=== PATIENT | male | born 1995 | race African-American/Black ===

== ENCOUNTER 2016-07-27 18:48 | Emergency (ER) | payer SELFPAY ==
[~2016-07-27] VITALS: Ht 175.3 cm; Wt 86.2 kg
[2016-07-27] MEDS ORDERED: ALLE24TA8 PO (20:23)
[2016-07-27] MEDS ORDERED: NAPHSOL OD (20:23)
[2016-07-27 20:32] VITALS: BP 114/72
== END 2016-07-27 20:39 | disposition home or self-care (01) ==
LOC: M ED 19:56
DX: H10.13 Acute atopic conjunctivitis, bilateral (principal)

== ENCOUNTER 2016-08-12 08:46 | Emergency (ER) | payer SELFPAY ==
[~2016-08-12] VITALS: Ht 175.3 cm; Wt 91.4 kg
[~2016-08-12 08:46] MED LIST: ALLE24TA8 PO; NAPHSOL OD
[2016-08-12] MEDS ORDERED: FLON1SPR (10:13)
[2016-08-12] MEDS ORDERED: NAPHCON-A OPHTH SOLN 15 ML OD PRN (10:15)
[2016-08-12] MEDS ORDERED: NAPHSOL OD (10:15)
[2016-08-12] MEDS ORDERED: CETIRIZINE (ZyrTEC) 10 MG TAB PO ONE (10:15)
[2016-08-12] MEDS ORDERED: ZYRT10TA2 PO (10:15)
[2016-08-12 10:26] VITALS: BP 126/69
== END 2016-08-12 10:59 | disposition home or self-care (01) ==
LOC: M ED 09:07
DX: H10.45 Other chronic allergic conjunctivitis (principal)

== ENCOUNTER → 2016-11-10 | Outpatient (REF) ==
[~2016-11-10] MED LIST changes: +CLOTR1CR TOP; +FLON1SPR; +ZYRT10TA2 PO
== END ==
LOC: M LAB 09:10
PROVIDERS: ATTEND Nurse Practitioner Adult Health
DX: Z02.1 Encounter for pre-employment examination (principal)

== ENCOUNTER 2016-12-21 15:37 | Emergency (ER) | payer SELFPAY ==
[~2016-12-21] VITALS: Ht 175.3 cm; Wt 87.3 kg
[~2016-12-21 15:37] MED LIST changes: -CLOTR1CR TOP
[2016-12-21] MEDS ORDERED: CLOTR1CR TOP (16:32)
[2016-12-21 17:50] VITALS: BP 114/84
== END 2016-12-21 17:56 | disposition home or self-care (01) ==
LOC: M ED 15:37
DX: B36.0 Pityriasis versicolor (principal)

== ENCOUNTER 2017-06-09 09:31 | Emergency (ER) | payer SELFPAY, MEDICAID | END 2017-06-09 10:20 | disposition home or self-care (01) | LOC: M ED 09:31 | DX: R03.0 Elevated blood-pressure reading, without diagnosis of hypertension (principal); M54.2 Cervicalgia; M54.6 Pain in thoracic spine | CPT/HCPCS: 99282 ==

== ENCOUNTER 2018-06-12 00:35 | Emergency (ER) | payer OTHER ==
[~2018-06-12] VITALS: Ht 175.3 cm; Wt 86.0 kg
[~2018-06-12 00:35] MED LIST changes: +ALLE24TA7 PO; -ALLE24TA8 PO; +CLOT1CRE27 TOP; +CYCL10TA PO; +IBUP80TA PO; +ZYRT10CA5 PO; -ZYRT10TA2 PO
[2018-06-12] MEDS ORDERED: KETO10TAB PO (01:44)
[2018-06-12] MEDS ORDERED: CYCL10TA PO (01:44)
[2018-06-12] MEDS ORDERED: CYCLOBENZAPRINE 10 MG TAB PO ONE (01:45)
[2018-06-12] MEDS ORDERED: KETOROLAC TROMETHAMINE 10 MG TAB PO ONE (01:45)
[2018-06-12 02:04] VITALS: BP 136/70
== END 2018-06-12 02:00 | disposition home or self-care (01) ==
LOC: M ED 00:35
DX: S39.012A Strain of muscle, fascia and tendon of lower back, initial encounter (principal); X50.9XXA Other and unspecified overexertion or strenuous movements or postures, initial encounter; Y92.89 Other specified places as the place of occurrence of the external cause; Y93.67 Activity, basketball

== ENCOUNTER 2018-09-19 09:40 | Emergency (ER) | payer OTHER ==
[~2018-09-19] VITALS: Ht 175.3 cm; Wt 86.7 kg
[~2018-09-19 09:40] MED LIST changes: +KETO10TAB PO
[2018-09-19] MEDS ORDERED: CYCLOBENZAPRINE 10 MG TAB PO ONE (10:45)
[2018-09-19] MEDS ORDERED: IBUPROFEN 800 MG TAB PO ONE (10:45)
--- NOTE | 2018-09-19 11:22 | REP ---
LUMBOSACRAL SPINE: Five of the lumbosacral spine performed. There is no compression fracture or malalignment. There is normal lordosis. Disc spaces are well preserved. The posterior elements are intact. There is no change since the prior study of 01/06/2016. IMPRESSION: Negative lumbosacral spine series. Electronically Signed by Link Corbett MD 09/20/2018 01:01 P
[2018-09-19] MEDS ORDERED: CYCL5TAB PO (11:50)
[2018-09-19 12:09] VITALS: BP 115/67
== END 2018-09-19 12:10 | disposition home or self-care (01) ==
LOC: M ED 09:40
DX: S39.012A Strain of muscle, fascia and tendon of lower back, initial encounter (principal); X50.0XXA Overexertion from strenuous movement or load, initial encounter; Y92.89 Other specified places as the place of occurrence of the external cause; Y93.9 Activity, unspecified; Y99.0 Civilian activity done for income or pay; G89.29 Other chronic pain; M54.9 Dorsalgia, unspecified

== ENCOUNTER → 2019-09-26 | Outpatient (REF) | payer OTHER ==
[~2019-09-26] MED LIST changes: +CYCL-707 PO; -CYCL10TA PO; +CYCL5TAB PO; +PRED10TA2 PO; +ROBA750T4 PO
== END ==
LOC: M LAB REF 11:53
PROVIDERS: ATTEND Physician Assistant Medical
DX: Z03.818 Encounter for observation for suspected exposure to other biological agents ruled out (principal); Z11.59 Encounter for screening for other viral diseases

== ENCOUNTER 2019-11-02 20:29 | Emergency (ER) | payer OTHER ==
[~2019-11-02] VITALS: Ht 175.3 cm; Wt 82.8 kg
[~2019-11-02 20:29] MED LIST changes: -PRED10TA2 PO; -ROBA750T4 PO
[2019-11-02] MEDS ORDERED: diazePAM 10MG/2ML SYRINGE (J3360 PER 5MG) IM ONE (21:45)
[2019-11-02] MEDS ORDERED: KETOROLAC 60MG 2ML VIAL IM ONE (21:45)
--- NOTE | 2019-11-02 22:12 | REPVR ---
PROCEDURE INFORMATION: Exam: CT Cervical Spine Without Contrast Exam date and time: 11/02/2019 9:52 PM Age: 24 years old Clinical indication: Pain; Other: Vert. Point tenderness; Additional info: Vert. Point tenderness; Post jumping TECHNIQUE: Imaging protocol: Computed tomography images of the cervical spine without contrast. Axial, coronal and sagittal reformatted images were created and reviewed. Radiation optimization: All CT scans at this facility use at least one of these dose optimization techniques: automated exposure control; mA and/or kV adjustment per patient size (includes targeted exams where dose is matched to clinical indication); or iterative reconstruction. COMPARISON: No relevant prior studies available. FINDINGS: Vertebrae: Straightening of the normal cervical lordosis. Alignment anatomic. Dextroscoliosis. No CT evidence of acute fracture, dislocation or subluxation. Vertebral body heights maintained. Discs/Spinal canal/Neural foramina: Intervertebral disc spaces preserved. No significant spinal canal or neural foraminal stenosis. Soft tissues: Grossly unremarkable. Lungs: Grossly unremarkable. IMPRESSION: 1. No CT evidence of acute cervical spine traumatic injury. 2. Additional findings, as above. Electronically signed by: Jovani Thayer On 11/02/2019 22:13:20 PM
[2019-11-02] MEDS ORDERED: ROBA750T4 PO (22:43)
[2019-11-02] MEDS ORDERED: PRED10TA2 PO (22:44)
[2019-11-02 23:05] VITALS: BP 114/78
== END 2019-11-02 23:00 | disposition home or self-care (01) ==
LOC: M ED 20:29
DX: S13.4XXA Sprain of ligaments of cervical spine, initial encounter (principal); X58.XXXA Exposure to other specified factors, initial encounter; Y92.89 Other specified places as the place of occurrence of the external cause
CPT/HCPCS: 72125; 96372; 99283; J1885; J3360

== ENCOUNTER 2020-02-27 07:52 | Emergency (ER) | payer OTHER ==
[~2020-02-27] VITALS: Ht 175.3 cm; Wt 85.7 kg
[~2020-02-27 07:52] MED LIST changes: +PRED10TA2 PO; +ROBA750T4 PO
[2020-02-27] MEDS ORDERED: AZITHROMYCIN 250MG TABLET PO ONE (08:30)
[2020-02-27] MEDS ORDERED: cefTRIAXone SOD 250MG VIAL (J0696 PER 250MG) IM ONE (08:30)
[2020-02-27] MEDS ORDERED: LIDOCAINE 1% SDV 5ML VIAL DILUENT ONE (08:30)
[2020-02-27 09:36] VITALS: BP 130/73
[2020-02-27 11:09] LABS: CHLAMYDIA DNA AMPLIFICATION NEGATIVE (NEGATIVE); GC DNA AMPLIFICATION POSITIVE (NEGATIVE)
== END 2020-02-27 09:38 | disposition home or self-care (01) ==
LOC: M ED 07:52
DX: R30.0 Dysuria (principal); N50.9 Disorder of male genital organs, unspecified; Z20.2 Contact with and (suspected) exposure to infections with a predominantly sexual mode of transmission
CPT/HCPCS: 81001; 87086; 87661; 96372; 99283; J0696

== ENCOUNTER 2020-05-01 20:36 | Emergency (ER) | payer OTHER ==
[~2020-05-01] VITALS: Ht 175.3 cm; Wt 84.7 kg
--- OUTSIDE RECORDS SUMMARY | 2020-05-01 20:49 | CCD ---
Author Author [facility] Address Unknown Phone Unavailable Care Team Providers Care Rn Utilization Management Um Name Role Phone WILFREDO RITTER Unavailable Unavailable OCTAVIO GALEANA MD Unavailable Unavailable OCTAVIO GALEANA MD Unavailable Unavailable OCTAVIO GALEANA MD Unavailable Unavailable OCTAVIO GALEANA MD Unavailable Unavailable OCTAVIO GALEANA MD Unavailable Unavailable Mariela Curry RESOURCE DEVELOPMENT MANAGER Unavailable Unavailable Destiny Curry Unavailable Unavailable Patricio, A Mariela RESOURCE DEVELOPMENT MANAGER Unavailable Unavailable Patricio, A Mariela RESOURCE DEVELOPMENT MANAGER Unavailable Unavailable Patricio, A Mariela RESOURCE DEVELOPMENT MANAGER Unavailable Unavailable Patricio, A Mariela RESOURCE DEVELOPMENT MANAGER Unavailable Unavailable Patricio, A Mariela RESOURCE DEVELOPMENT MANAGER Unavailable Unavailable Patricio, A Mariela RESOURCE DEVELOPMENT MANAGER Unavailable Unavailable Patricio, A Mariela RESOURCE DEVELOPMENT MANAGER Unavailable Unavailable Patricio, A Mariela RESOURCE DEVELOPMENT MANAGER Unavailable Unavailable Patricio, A Mariela RESOURCE DEVELOPMENT MANAGER Unavailable Unavailable Patricio, A Mariela RESOURCE DEVELOPMENT MANAGER Unavailable Unavailable Patricio, A Mariela RESOURCE DEVELOPMENT MANAGER Unavailable Unavailable Patricio, A Mariela RESOURCE DEVELOPMENT MANAGER Unavailable Unavailable Patricio, A Mariela RESOURCE DEVELOPMENT MANAGER Unavailable Unavailable Patricio, A Mariela RESOURCE DEVELOPMENT MANAGER Unavailable Unavailable Patricio, A Mariela RESOURCE DEVELOPMENT MANAGER Unavailable Unavailable Patricio, A Mariela RESOURCE DEVELOPMENT MANAGER Unavailable Unavailable Patricio, A Mariela RESOURCE DEVELOPMENT MANAGER Unavailable Unavailable Patricio, A Mariela RESOURCE DEVELOPMENT MANAGER Unavailable Unavailable Patricio, A Mariela RESOURCE DEVELOPMENT MANAGER Unavailable Unavailable Patricio, A Mariela RESOURCE DEVELOPMENT MANAGER Unavailable Unavailable Patricio, A Mariela RESOURCE DEVELOPMENT MANAGER Unavailable Unavailable Patricio, A Mariela RESOURCE DEVELOPMENT MANAGER Unavailable Unavailable Patricio, A Mariela RESOURCE DEVELOPMENT MANAGER Unavailable Unavailable Patricio, A Mariela RESOURCE DEVELOPMENT MANAGER Unavailable Unavailable Patricio, A Mariela RESOURCE DEVELOPMENT MANAGER Unavailable Unavailable Patricio, A Mariela RESOURCE DEVELOPMENT MANAGER Unavailable Unavailable Patricio, A Mariela RESOURCE DEVELOPMENT MANAGER Unavailable Unavailable Re-disclosure Warning The records that you are about to access may contain information from federally-assisted alcohol or drug abuse programs. If such information is present, then the following federally mandated warning applies: This information has been disclosed to you from records protected by federal confidentiality rules (42 CFR part 2). The federal rules prohibit you from making any further disclosure of this information unless further disclosure is expressly permitted by the written consent of the person to whom it pertains or as otherwise permitted by 42 CFR part 2. A general authorization for the release of medical or other information is NOT sufficient for this purpose. The Federal rules restrict any use of the information to criminally investigate or prosecute any alcohol or drug abuse patient.The records that you are about to access may contain highly sensitive health information, the redisclosure of which is protected by Article 27-F of the [facility] Public Health law. If you continue you may have access to information: Regarding HIV / AIDS; Provided by facilities licensed or operated by the [facility] Office of Mental Health; or Provided by the [facility] Office for People With Developmental Disabilities. If such information is present, then the following [facility] mandated warning applies: This information has been disclosed to you from confidential records which are protected by state law. State law prohibits you from making any further disclosure of this information without the specific written consent of the person to whom it pertains, or as otherwise permitted by law. Any unauthorized further disclosure in violation of state law may result in a fine or long term sentence or both. A general authorization for the release of medical or other information is NOT sufficient authorization for further disc losure. Encounters Encounter Providers Location Date Indications Data Source(s ) [facility] 08:[facility] 11[facility]12/2019 12:02:[facility] 11/11/2019 03:02:03 PM EDT [facility] Outpatient Attender: [facility] 11/11/2019 02:40:00 PM EDT [facility] Outpatient Attender: [facility] 10:22[facility]00 [facility]iela Curry [facility] 11/11/2019 10:1 6:02 AM EDT [facility]: [facility] 11/05/2019 09:2 5:01 AM EDT [facility]: [facility] 11/05/2019 09:2 4:02 AM EDT [facility]: [facility] 10/23/2019 09:3 2:01 AM EDT [facility]: [facility]09[facility]2019 08:31:[facility] CODY ROSS 08/19/2019 07:53:47 P M EDT [facility] 08/19/2019 01:29:00 P M EDT [facility]patient Attender: [facility] 08/09/2019 12:16:44 A M EDT [facility] Outpatient Attender: CODY Curry [facility] 06/11/2019 03:55:01 P M EDT [facility] Outpatient Attender: WILFREDO RITTER [facility] 06/05/2019 01:38:32 PM EDT [facility] Outpatient Attender: WILFREDO LOVE [facility] 06/05/2019 01:37:01 PM EDT [facility] Outpatient Attender: WILFREDO LOVE [facility] 06/04/2019 03:12:00 PM EDT [facility] Outpatient Attender: WILFREDO LOVE [facility] 05/20/2019 07:55:01 AM EDT [facility] Outpatient Attender: WILFREDO LOVE [facility] 05/20/2019 07:46:01 AM EDT [facility] Outpatient Attender: WILFREDO RITTER [facility] 05/16/2019 04:52:01 PM [facility] Outpatient Attender: WILFREDO LOVE [facility] 05/14/2019 10:55:03 AM [facility] Outpatient Attender: WILFREDO LOVE [facility] 05/13/2019 09:01:07 PM [facility] Outpatient Attender: WILFREDO LOVE [facility] 05/13/2019 04:14:00 PM [facility] Outpatient Attender: WILFREDO RITTER [facility] 05/13/2019 11:04:01 AM [facility] Outpatient Attender: WILFREDO RITTER [facility] 05/13/2019 11:04:01 AM [facility] Outpatient Attender: WILFREDO LOVE [facility] 05/13/2019 10:16:01 AM [facility] Outpatient Attender: WILFREDO LOVE [facility] 05/13/2019 10:15:01 AM [facility] Outpatient Attender: WILFREDO LOVE [facility] 05/13/2019 09:49:01 AM [facility] Outpatient Attender: WILFREDO RITTER [facility] 04/09/2019 04:02:00 PM [facility] Outpatient Attender: WILFREDO LOVE [facility] 04/04/2019 09:01:04 PM [facility] Outpatient Attender: WILFREDO [facility] 04/04/2019 05:11:00 PM [facility] Outpatient Attender: WILFREDO [facility] 04/04/2019 05:10:01 PM [facility] Outpatient Attender: WILFREDO RITTER ALL 04/04/2019 09:33:34 AM [facility] Emergency Attender: OCTAVIO GALEANA MD ER-ER 0 03/17/2019 03:55:00 PM [facility] - 03/17/2019 07:27:00 PM [facility] Patient discharged. Insurance Providers Payer name Policy type / Coverage type Policy ID Covered green party ID Covered green party's relationship to matos Policy Matos Plan Information [facility] PLAN [facility] [id number] SP [id number] [facility]) O [id number] S [id number] Medicaid S [id number] S [id number] [facility] Community Plan P [id number] S [id number] [employer] [id number] SP [id number] Medicaid S [id number] S [id number] Managed [facility] Community Plan P [id number] S [id number] [facility] JAIDA [id number] S [id number] [facility] JAIDA UNAVAILABLE S UNAVAILABLE [employer] [id number] SP [id number] [facility] PLAN [facility] [id number] SP [id number] SELF PAY ONLY [id number] SP [id number] MEDICAID [id number] SP [id number] MEDICAID [id number] SP [id number] SELF PAY UNAVAILABLE SP UNAVAILA BLE FORMERLY [facility] COMMUNITY PLAN [facility] [id number] SP [id number] MEDICAID [id number] SP [id number] Problems, Conditions, and Diagnoses Code Display Name Description Problem Type Effective Dates Data Source(s) 521.00 Dental caries Dental caries 05/13/2019 11:03:38 AM [facility] M79.672 Pain in left foot PAIN IN LEFT FOOT Diagnosis 03/17 03:55:00 PM [facility] M76.62 Achilles tendinitis, left leg ACHILLES TENDINITIS, LEF T LEG Diagnosis 03/17/2019 03:55:00 PM [facility] Results ID Date Data Source [id number] 11/11/2019 02:29:14 PM EDT [facility] Current Problems: Dental caries (ICD-521 .00) (GYK38-C19.9)[place] teeth impaction (ICD-520.6) (JCU01-E05.1)Problem list reviewed during this update.Medication list reviewed during this update.No known medications.Allergy list reviewed during this update.No known allergies. Dental Chart: Procedures:Type - CDT Code - Description B - (D2150) Amalgam, 2 surfaces, primary or permanent on Tooth # 3 on Tooth Surface MO (Performed by Shon Robbins DDS) Chart Notes:david (Nov 11 2019 3:00PM): [facility] (-) per pt Took temp@ F. Additional PPE requirements due to COVID-19 in the dental setting, N95, surgical mask, hair covering, gown CC: none. HurriCaine (Watermelon) Topical, UR infiltration 1 2carp. Septocaine (Articaine HCL 4%) X 1:200.000 epi. Operative: #3-MO Gluma and amalgam. Excavated with High Speed. Occlusion checked. No complications. POI. Assisted by AG . Pt was cooperative. NV:Shon Bird DDS by david (11/11/2019 3:00 PM): Tooth Notes and Watches:- Tooth 20 Watch: MesialTianna Yoon by cresencio (04/03/2019 3:08 PM): - Tooth 21 Watch: distalTianna Yoon by cresencio (04/03/2019 3:08 PM): - Tooth 3 Note: To be done next.Shon Robbins DDS by ryan (05/14/2019 10:40 AM): Assessment & Plan Allergies:No Known Allergies (updated 11/11/2019) Name Value Range Interpretation Code Description Data [facility] rce(s) Supporting Document(s) ID Date Data Source [id number] 10/23/2019 08:55:40 AM EDT [facility] Current Problems: Dental caries (ICD-521 .00) (ULO69-U60.9)[place] teeth impaction (ICD-520.6) (WMS14-A98.1)Problem list reviewed during this update.Medication list reviewed during this update.No known medications.Allergy list reviewed during this update.Patient declined [facility]. Dental Chart: Procedures:Type - CDT Code - Description B - (D0140) Limited oral evaluation - problem focused on Tooth # 3 (Performed by Shon Robbins DDS) B - (D2940) Sedative filling on Tooth # 3 on Tooth Surface MO (Performed by Shon Robbins DDS) Treatments:Type - CDT Code - Description T - (D2150) Amalgam, 2 surfaces, primary or permanent on Tooth # 3 on Tooth Surface MO (Performed by Shon Robbins DDS) Chart Notes:david (Oct 23 2019 9:29AM): Additional PPE requirements due to COVID-19 in the dental setting, N95, surgical mask, hair covering, gown and shield.S: CC: ' the same thing i was in here for last time its been like that for months' temporary on UR fell out. O: [facility]x (N/C Per Pt; n othing significant on medical history from 05/2019) HPI:4months PL:0; very temp sensitive no pain now BP: 127/75 p-62. Attempted to take PA dexis not picking up radiation. Per no xray needed after exam A: JELENA recommends permanent zee on #3-MO to be done. Poor retention of temporary fillings because of small size of chip in tooth. DX: loss of temp restorative material P: 3-MO Amalgam to be placed Informed Pt about new pain management policy of the clinic regarding about narcotic,told pt to alternate Ibuprophen 600- 800mg and tylenol 500mg every 4 to 6 hrs for pain when needed. Assisted By: MARKO NV: zee #3 Shon Robbins DDS by david (10/23/2019 9:29 AM): Tooth Notes and Watches:- Tooth 20 Watch: MesialBaker, Tianna by cresencio (04/03/2019 3:08 PM): - Tooth 21 Watch: distalTianna Yoon by cresencio (04/03/2019 3:08 PM): - Tooth 3 Note: To be done next.Shon Robbins DDS by ryan (05/14/2019 10:40 AM): Assessment & Plan Allergies:No Known Allergies (updated 06/05/2019) Clinical Visit Summary De clined Name Value Range Interpretation Code Description Data Shae rce(s) Supporting Document(s) ID Date Data Source [id number] 09/26/2019 11:00:00 AM EDT [facility] Name Value Range Interpretation Code Description Data Shae rce(s) Supporting Document(s) SARS coronavirus 2 RNA [facility] This lab was ordered by [facility] and reported by [facility]. ID Date Data Source [id number] 06/05/2019 07:59:46 AM EDT [facility] Current Problems: Dental caries (ICD-521 .00) (ECG55-X64.9)[place] teeth impaction (ICD-520.6) (NPD96-A29.1)Problem list reviewed during this update.Medication list reviewed during this update.No known medications.Allergy list reviewed during this update.No known allergies. Dental Chart: Procedures:Type - CDT Code - Description B - (D0270) Bitewing, single radiographic image (Performed by Jossy Mojica DMD) B - (D2940) Sedative filling on Tooth # 3 on Tooth Surface MO (Performed by Jossy Mojica DMD) B - (D0140) Limited oral evaluation - problem focused on Tooth # 3 (Performed by Jossy Mojica DMD) Chart Notes:jlam (Jun 05 2019 8:29AM): S: CC:" The temporary came out"O: RMHx (-)Per Pt. HPI: [address]: 0 BP: 111/73 P: 56, BW of #3, Missing a small omount of temporary filling.A: DDS recommends adding a little cavit , DX:defective restorationP:placed cavit #3-MOAssisted By:PD NV: Jossy Mazariegos DMD by wilfredo (06/05/2019 8:29 AM): Tooth Notes and Watches:- Tooth 20 Watch: MesialTianna Yoon by cresencio (04/03/2019 3:08 PM): - Tooth 21 Watch: distalTianna Yoon by cresencio (04/03/2019 3:08 PM): - Tooth 3 Note: To be done next.Shon Robbins DDS by ammiguel (05/14/2019 10:40 AM): Assessment & Plan Allergies:No Known Allergies (updated 06/05/2019) Name Value Range Interpretation Code Description Data Shae rce(s) Supporting Document(s) ID Date Data Source [id number] 05/14/2019 10:23:10 AM [facility] Current Problems: Dental caries (ICD-521 .00) (ISZ27-V71.9)[place] teeth impaction (ICD-520.6) (FTF45-T14.1) Dental Chart: Procedures:Type - CDT Code - Description B - (D2940) Sedative filling on Tooth # 3 on Tooth Surface MO (Performed by Shon Robbins DDS) B - (D0140) Limited oral evaluation - problem focused on Tooth # 3 (Performed by Shon Robbins DDS) B - (D0220) Intraoral, periapical, first radiographic image on Tooth # 3 (Performed by Shon Robbins DDS) Treatments:Type - CDT Code - Description T - (D2150) Amalgam, 2 surfaces, primary or permanent on Tooth # 3 on Tooth Surface MO (Performed by Shon Robbins DDS) Chart Notes:david (May 14 2019 10:53AM): S: CC: "When I was eating this morning, I felt a nawful pain near the teeth that were worked on the top right yesterday and it almost feels like I lost part of the filling. I just want to make sure that they are ok."O: RMHx (-)per pt. HPI: this morning. PL: 8.BP: 134/64. PA taken #3. # 4 and 5 filling done yesterday intact. #3-MO with lost mesial filling. Sensitive to air and no signs of infection present at this time. A: JELENA recommends to have restorationist of #3- MO replaced. Placed Cavit for temporary and advised pt. to be careful when eating and no flossing between #3 until permanent restorationist is completed. DX: #3-MO fractured with loss of restorationist. P: restorationist of #3-MOInformed Pt abo ut new pain management policy of the clinic regarding about narcotic,told pt to alternate Ibuprophen 600- 800mg and tylenol 500mg every 4 to 6 hrs for pain when neededAssisted By:AM.NV: restorationist.Shon Robbins DDS by david (05/14/2019 10:53 AM): Tooth Notes and Watches:- Tooth 20 Watch: MesialTianna Yoon by cresencio (04/03/2019 3:08 PM): - Tooth 21 Watch: distalTianna Yoon by cresencio (04/03/2019 3:08 PM): - Tooth 3 Note: To be done next.Shon Robbins DDS by ryan (05/14/2019 10:40 AM): Assessment & Plan Allergies:No Known Allergies (updated 05/13/2019) Name Value Range Interpretation Code Description Data Shae rce(s) Supporting Document(s) ID Date Data Source [id number] 05/13/2019 09:48:10 AM [facility] Current Problems: Dental caries (ICD-521 .00) (PMF15-J25.9)[place] teeth impaction (ICD-520.6) (JLA13-D74.1)Problem list reviewed during this update.Medication list reviewed during this update.No known medications.Allergy list reviewed during this update.No known allergies. Dental Chart: Procedures:Type - CDT Code - Description B - (D2150) Amalgam, 2 surfaces, primary or permanent on Tooth # 4 on Tooth Surface DO (Performed by Shon Robbins DDS) B - (D2150) Amalgam, 2 surfaces, primary or permanent on Tooth # 5 on Tooth Surface DO (Performed by Shon Robbins DDS) Chart Notes:david (May 13 2019 11:03AM): [facility] (-)Per Pt. CC: none. HurriCaine (Watermelon) Topical, UR infiltration, 2 carp. Septocaine (Articaine HCL 4%) X 1:200.000 epi. Operative: # 4-DO, 5-DO,Gluma and amalgam. Excavated with High Speed, Slow Speed and Spoon. Occlusion checked. No complications. POI. Assisted by PD. Pt was cooperative. NV:Shon Bird DDS by david (05/13/2019 11:03 AM): Tooth Notes and Watches:- Tooth 20 Watch: MesialTianna Yoon by cresencio (04/03/2019 3:08 PM): - Tooth 21 Watch: distalTianna Yoon by cresencio (04/03/2019 3:08 PM): Assessment & Plan Problems:Added: Dental caries (ICD-521.00) (KSU04-U19.9)Allergies:No Known Allergies (updated 05/13/2019) Name Value Range Interpretation Code Description Data Shae rce(s) Supporting Document(s) ID Date Data Source [id number] 04/03/2019 02:35:09 PM [facility] Vital SignsBlood Pressure: 123/71 Patient History Family History:No known FHSocial/Personal History: Smoking Status: never smokerCurrent Problems: [place] teeth impaction (ICD-520.6) (YZX16-M38.1) Dental Chart: Procedures:Type - CDT Code - Description B - (D0150) Comprehensive oral evaluation - new or established patient (Performed by Shon Robbins DDS) B - (D1110) Prophylaxis, adult (Performed by iTanna Yoon) B - (D0274) Bitewings, 4 radiographic images (Performed by Tianna Yoon) B - (D0230) Intraoral, periapical, each additional radiographic image on Tooth # 11 (Performed by Tianna Yoon) B - (D0220) Intraoral, periapical, first radiographic image on Tooth # 6 (Performed by Tianna Yoon) B - (D0230) Intraoral, periapical, each additional radiographic image on Tooth # 8 (Performed by Tianna Yoon) Treatments:Type - CDT Code - Description T - (D7140) Extraction, erupted tooth or exposed root (elevation and/or forceps removal) on Tooth # 1 (Performed by Tianna Yoon) T - (D7140) Extraction, erupted tooth or exposed root (elevation and/or forceps removal) on Tooth # 16 (Performed by Tianna Yoon) T - (D2150) Amalgam, 2 surfaces, primary or perma nent on Tooth # 13 on Tooth Surface DO (Performed by Tianna Yoon) T - (D2150) Amalgam, 2 surfaces, primary or permanent on Tooth # 12 on Tooth Surface DO (Performed by Tianna Yoon) T - (D2150) Amalgam, 2 surfaces, primary or permanent on Tooth # 5 on Tooth Surface DO (Performed by Tianna Yoon) T - (D7140) Extraction, erupted tooth or exposed root (elevation and/or forceps removal) on Tooth # 32 (Performed by Tianna Yoon) T - (D2150) Amalgam, 2 surfaces, primary or permanent on Tooth # 4 on Tooth Surface DO (Performed by Tianna Yoon) Existing:Type - CDT Code - Description[E] Decay On #12 Surface D, #13 Surface D, #4 Surface D, #5 Surface D[E] Resin-Based Composite - Direct On #2 Surface O Chart Notes:david (Apr 04 2019 7:33AM): [facility](-). CC" I have pain on my lower left wi tooth". Reviewed Xrays. Exam: caries detected. OCS: WNL, IO/ EO completed, No significant hard findings upon clinical exam Pt was cooperative.OHI givenReferral: OS or wisdom teethNV:Tianna Subramanian by david (04/04/2019 7:33 AM): ; cresencio (Apr 03 2019 3:54PM): [facility](-)cc- My lower left side hurtsPatient was referred to OS for extraction of # 16 and 17. [address] Keating number as asked to call and make a consult visit appointment. Added # 1 and 32 to referral Comp exam, 4BWX-dexis, PA# 6,8,11 , Adult prophy -ultrasonic, handscaled, brushed and flossed, Patient referred to OS for extraction of # 1, 16, 17 OH-goodPatient reported brushing twice/day, not flossing regularly. Trace marginal biofilm with trace marginal and interproximal calculus in sextant 5Used ultrasonic and hand instrumentsTissues- mild bleeding on flossingOHI-brushing am pm, flossing and then using Listerine zero total carePatient was cooperativeNV- fillingsTianna Yoon by cresencio (04/03/2019 3:54 PM): Tooth Notes and Watches:- Tooth 20 Watch: MesialTianna Yoon by cresencio (04/03/2019 3:08 PM): - Tooth 21 Watch: distalTianna Yoon by cresencio (04/03/2019 3:08 PM): Assessment & Plan Allergies:No Known Allergies (updated 04/03/2019) Name Value Range Interpretation Code Description Data Shae rce(s) Supporting Document(s) ID Date Data Source [id number] 03/18/2019 09:15:00 AM EST [place] [facility] johanna Exam Number: [id number] [facility] N: 03/17/2019 17:49 ESTCLINICAL INDICATION: PainTECHNIQUE: 2 views of the left foot.FINDINGS:No evidence of acute fracture or dislocation. Alignment is normal. Noaggressive osseous lesions or erosions. Bone mineral density isunremarkable. Visualized soft tissues are normal.IMPRESSION:No evidence of acute fracture or dislocation.Electronically signed in PS360 by: Haily Fuller M.D. 03/18/2019 9:08EST Reported By: Ann FULLER M.D. Signed By: Kevin FULLER M.D. Name Value Range Interpretation Code Description Data Shae rce(s) Supporting Document(s) ID Date Data Source [id number] 03/17/2019 07:52:00 PM EST [facility] Exam Number: [id number] [facility] N: 03/17/2019 17:49 ESTHISTORY: PainTECHNIQUE: 4 views of the left ankle were obtainedFINDINGS:No evidence of acute fracture or dislocation. Ankle mortise and talardome are intact with normal alignment. No aggressive osseous lesionsor erosions. Bone mineral density is unremarkable. Visualized softtissues are normal.IMPRESSION:No evidence of acute fracture or dislocation.Electronically signed in PS360 by: Haily Fuller M.D. 03/17/201919:44 EST Reported By: Ann FULLER M.D. Signed By: Kevin FULLER M.D. Name Value Range Interpretation Code Description Data Shae rce(s) Supporting Document(s) ID Date Data Source [id number] 03/17/2019 07:27:00 PM EST [facility] Physician DocumentationClaxton-Pray M edical CenterName: Adrianna NoriegaorthAge: 23 yrsSex: MaleDOB: 1995MRN: [id number] Date: 03/17/2019Time: 15:55Account#: [id number] MD: Out of town provider, -ED Physician Lissett ArthurDisposition Summary:03/17/19 19:20Discharge OrderedLocation: Home Self Care bu1Cdsgjlk: new fu3Rpzndxsg: are unchanged ex8Jjfuwkwdf: Stable bz8Datnkhzog- Achilles tendinitis, left leg za1Udvqxmra: mb5- With: Mohsen Lozano MD- When: 1 - 2 days- Reason: Recheck today's complaints, Continuance of careDischarge Instructions:- Discharge Summary Sheet mb5- TENDONITIS ql1Clwo s:- Medication Reconciliation mb5- Medication Reconciliation Form - 2nd Copy ma5Qnkrqeibqzs:03/619:09 Attestation: I was available for consultation throughout this afpatient's ED visit.HPI:17:50 This 23 yrs old White Male presents to ER via Private Vehicle with rd1ymhgunwryg of Foot Pain.17:50 The patient presents with pain, that is chronic, states he thinks he rn9rqdcvte Achilles heel a couple of months ago playing basketball.Never sought treatment then lately has been going up and down stairsa lot and it seems to be flaring up. Complains of "catching"sensation at times and discomfort. . The complaints affect the leftAchilles. Context: The problem was sustained at a sports field orcourt, resulted from a mis-step, the patient can fully bear weight.Onset: The symptoms/episode began/occurred gradually, 2 month(s) ago,and became worse. Modifying factors: The symptoms are alleviated byremaining still, the symptoms are aggravated by movement. Associatedsigns and symptoms: The patient has no apparent associated signs orsymptoms. Treatment prior to arrival includes: no previous treatment.Severity of symptoms: At their worst the symptoms were mild, in theemergency department the symptoms are unchanged. It is unknownwhether or not the patient has had similar symptoms in the past. Thepatient has not recently seen a physician.Historical:- Allergies: No known Allergies;- Home Meds:1. None- PMHx: None;- Immunization history: Last tetanus immunization: up to date. Fluvaccine is not up to date.- Family history: Reviewe d and not pertinent.- Social history: Smoking status: Patient states was never smoker oftobacco. Smoking status: Patient states was never smoker oftobacco. ETOH status Denies use of ETOH Smoking status: Patientstates was never smoker of tobacco. ETOH status Denies use of ETOH.- Advance Directives:: None.ROS:17:56 Constitutional: Negative for fever, chills, and weight loss. mb5MS/extremity: Positive for pain, tenderness, of the left Achilles.All other systems are negative.Exam:17:56 Constitutional: This is a well developed, well nourished patient who mb5is awake, alert, and in no acute distress. Head/Face: Normocephalic,atraumatic.17:56 Neck: Trachea midline, no thyromegaly or masses palpated, and nocervical lymphadenopathy. Supple, full range of motion withoutnuchal rigidity, or vertebral point tenderness. No Meningismus.Chest/axilla: Normal chest wall appearance and motion. Nontenderwith no deformity. No lesions are appreciated. Cardiovascular:Regular rate and rhythm with a normal S1 and S2. No gallops,murmurs, or rubs. Normal PMI, no JVD. No pulse deficits.Respiratory: Lungs have equal breath sounds bilaterally, clear toauscultation and percussion. No rales, rhonchi or wheezes noted. Noincreased work of breathing, no retractions or nasal flaring.17:56 Back: No spinal tenderness. No costovertebral tenderness. Fullrange of motion. Skin: Warm, dry with normal turgor. Normal colorwith no rashes, no lesions, and no evidence of cellulitis. Psych:Awake, alert, with orientation to person, place and time. Behavior,mood, and affect are within normal limits.17:56 Eyes: Exam is negative for acute changes.17:56 ENT: Exam is negative for acute changes.17:56 Abdomen/GI: Exam negative for acute changes.17:56 Musculoskeletal/extremity: Extremities: grossly normal except: no tedin the left Achilles: pain, tenderness, ROM: full active range ofmotion, full passive range of motion, Perfusion: the extremity ispink, warm, with brisk capillary refill, Sensation intact. Tendonexam: specific tendon testing normal through active and passive rangeof hbmfyr68:56 Neuro: Exam negative for acute changes.Vital Signs:16:37 BP 99 / 60; Pulse 59; Resp 16; Temp 98.5; Pulse Ox 98% on R/A; Weight blk84 kg; Pain 6/10;19:27 zs19:27 Defferred per provider zsMDM:17:46 Patient medically screened. mb517:50 Data reviewed: vital signs, nurses notes. 5003/1717:49 Order name: Foot (Left) Limited - 2 Views mb5003/616:49 Order name: Ankle Complete Left - 4 View mb5003/1719:21 Order name: Other: DILEEP wrap; Complete Time: 19:26 qg1Julvzmjoc Medications:No medications were administeredSignatures:Dispatcher [employer] Rosa M Case RN RN blkFedorowicz, Arthur, MD MD afBridge, Michelle, RESOURCE DEVELOPMENT MANAGER-C RESOURCE DEVELOPMENT MANAGER-Cmb5 Name Value Range Interpretation Code Description Data Shae rce(s) Supporting Document(s) ID Date Data Source [id number] 03/17/2019 07:27:00 PM EST [facility] NotesCl[facility] terName: Adrianna NoriegaorthAge: 23 yrsSex: MaleDOB: 1995MRN: [id number] Date: 03/17/2019Time: 15:55Account#: [id number] MD: Out of town provider, -Diagnosis: Achilles tendinitis, left legPresentation:03/615:34 Presenting complaint: Patient states: he injured the left achilles blkarea while playing basketball 2 weeks ago and the pain continues.Communicable Disease Screen: Negative for fever>/= 100 degreesFahrenheit. Communicable disease screen is negative. (-) rash orunusual skin lesion (-) travel/contact with traveler (-) respiratorysymptoms.16:34 Acuity: Triage 4 blk16:34 Method Of Arrival: Private Vehicle blk16:35 Acuity Assignment: Triage 4 blkTriage Assessment:16:36 General: Appears uncomfortable, Behavior is cooperative, pleasant. blkSepsis Screening: (1)Signs/symptoms infection No. Pain: Complains ofpain in posterior right heel with walking Pain currently is 6 out of10 on a pain scale. PSS-3 Now I'm going to ask you some questionsthat we ask everyone treated here, no matter what problem they arehere for. It is part of the hospital's policy and it helps us to makesure we are not missing anything important. Over the past 2 weeks,have you felt down, depressed, or hopeless? No. Musculoskeletal:Circulation, motion, and sensation intact.Historical:- Allergies: No known Allergies;- Home Meds:1. None- PMHx: None;- Immunization history: Last tetanus immunization: up to date. Fluvaccine is not up to date.- Family history: Reviewed and not pertinent.- Social history: Smoking status: Patient states was never smoker oftobacco. Smoking status: Patient states was never smoker oftobacco. ETOH status Denies use of ETOH Smoking status: Patientstates was never smoker of tobacco. ETOH status Denies use of ETOH.- Advance Directives:: None.Screenin:44 Abuse screen: Denies threats or abuse. Nutritional screening: No blkdeficits noted. Offer of HIV testing: patient was previously offeredscreening. Fall Risk None identified.Assessment:17:43 Musculoskeletal: Circulation, motion, and sensation intact. blkVital Signs:16:37 BP 99 / 60; Pulse 59; Resp 16; Temp 98.5; Pulse Ox 98% on R/A; Weight blk84 kg; Pain 6/10;19:27 zs19:27 Defferred per provider zsED Course:15:55 Patient arrived in ED. sk415:55 Out of town provider, - is Private Physician. sk416:35 Triage completed. blk17:44 Patient has correct armband on for positive identification. Bed in blklow position.17:44 No Physician assisted procedures completed. blk17:45 Sandra Alford FNP-C is [facility]. mb517:45 Octavio Galeana MD is Attending Physician. mb519:20 Mohsen Lozano MD is Referral Physician. mb519:27 Dileep wrap to left ankle. zsAdministered Medications:No medications were administeredOutcome:19:20 Discharge ordered by . mb519:27 Disposition: Discharged to home ambulatory. zs19:27 Condition: stable, Condition: :27 Discharge instructions given to patient, Instructed on dischargeinstructions, follow up and referral plans. Demonstratedunderstanding of instructions.19:27 Discharge Assessment: Patient verbalized understanding of dispositioninstructions. Patient has no functional deficits.19:27 Patient left the ED. zsSignatures:Rosa M Castillo RN RN blkShantie, Zachary, RN RN zsBridge, Michelle, FNP-C FNP-Euc8IhpgonqoAva Manzano gm6Lgowxyaydlf: (The following items were deleted from the chart)16:39 16:34 Presenting complaint: Patient states: he injured the right blkachilles area while playing basketball 2 weeks ago and the paincontinues blk Name Value Range Interpretation Code Description Data Shae rce(s) Supporting Document(s) Procedure
[2020-05-01] MEDS ORDERED: LIDOCAINE 1% SDV 5ML VIAL DILUENT ONE (21:15)
[2020-05-01] MEDS ORDERED: cefTRIAXone 500MG VIAL (J0696 PER 250MG) IM ONE (21:15)
[2020-05-01] MEDS ORDERED: DOXYCYCLINE HYCLATE 100MG TABLET PO ONE (21:15)
--- NOTE | 2020-05-01 21:33 | REPVR ---
PROCEDURE INFORMATION: Exam: XR Right Hand Exam date and time: 05/01/2020 8:59 PM Age: 25 years old Clinical indication: Pain; Hand; Right; Additional info: Pain after punching something TECHNIQUE: Imaging protocol: XR Right hand. Views: 3 or more views. COMPARISON: No relevant prior studies available. FINDINGS: Bones/joints: Normal. Soft tissues: Normal. IMPRESSION: Negative right hand. Electronically signed by: Bryan Velazquez On 05/01/2020 21:33:01 PM
[2020-05-01] MEDS ORDERED: DOXY100C37 PO (21:40)
[2020-05-01 21:44] VITALS: BP 124/79
--- OUTSIDE RECORDS SUMMARY | 2020-05-01 21:45 | CCD ---
Author Author [facility] Organization [facility] Address Unknown Phone Unavailable Care Team Providers Care Childcare Director Name Role Phone WILFREDO RITTER Unavailable Unavailable OCTAVIO GALEANA MD Unavailable Unavailable OCTAVIO GALEANA MD Unavailable Unavailable OCTAVIO GALEANA MD Unavailable Unavailable OCTAVIO GALEANA MD Unavailable Unavailable OCTAVIO GALEANA MD Unavailable Unavailable Mariela Curry ZONING ASSISTANT Unavailable Unavailable Destiny Curry Unavailable Unavailable Patricio, A Mariela ZONING ASSISTANT Unavailable Unavailable Patricio, A Mariela ZONING ASSISTANT Unavailable Unavailable Patricio, A Mariela ZONING ASSISTANT Unavailable Unavailable Patricio, A Mariela ZONING ASSISTANT Unavailable Unavailable Patricio, A Mariela ZONING ASSISTANT Unavailable Unavailable Patricio, A Mariela ZONING ASSISTANT Unavailable Unavailable Patricio, A Mariela ZONING ASSISTANT Unavailable Unavailable Patricio, A Mariela ZONING ASSISTANT Unavailable Unavailable Patircio, A Mariela ZONING ASSISTANT Unavailable Unavailable Patricio, A Mariela ZONING ASSISTANT Unavailable Unavailable Patricio, A Mariela ZONING ASSISTANT Unavailable Unavailable Patricio, A Mariela ZONING ASSISTANT Unavailable Unavailable Patricio, A Mariela ZONING ASSISTANT Unavailable Unavailable Patricio, A Mariela ZONING ASSISTANT Unavailable Unavailable Patricio, A Mariela ZONING ASSISTANT Unavailable Unavailable Patricio, A Mariela ZONING ASSISTANT Unavailable Unavailable Patricio, A Mariela ZONING ASSISTANT Unavailable Unavailable Patricio, A Mariela ZONING ASSISTANT Unavailable Unavailable Patricio, A Mariela ZONING ASSISTANT Unavailable Unavailable Patricio, A Mariela ZONING ASSISTANT Unavailable Unavailable Patricio, A Mariela ZONING ASSISTANT Unavailable Unavailable Patricio, A Mariela ZONING ASSISTANT Unavailable Unavailable Patricio, A Mariela ZONING ASSISTANT Unavailable Unavailable Patricio, A Mariela ZONING ASSISTANT Unavailable Unavailable Patricio, A Mariela ZONING ASSISTANT Unavailable Unavailable Patricio, A Mariela ZONING ASSISTANT Unavailable Unavailable Patricio, A Mariela ZONING ASSISTANT Unavailable Unavailable Re-disclosure Warning The records that [...] is protected by Article 27-F of the [facility] Public Health law. If you continue you may have access to information: Regarding HIV / AIDS; Provided by facilities licensed or operated by the [facility] Office of Mental Health; or Provided by the [facility] Office for People With Developmental Disabilities. If such information is present, then the following [facility] mandated warning applies: This information has been [...] law may result in a fine or long-term sentence or both. A general authorization for the release of medical or other information is NOT sufficient authorization for further disc losure. Encounters Encounter Providers Location Date Indications Data Source(s ) [facility] 12/03/2019 08:25:00 AM EDT [facility] Outpatient [facility] 11/11/2019 03:02:03 PM EDT [facility] Outpatient Attender: [facility] 11/11/2019 02:40:00 PM EDT [facility] Outpatient Att[facility] 11/11/2019 10:1 6:02 AM EDT [facility]: [facility] 11/05/2019 09:2 5:01 AM EDT [facility]patient [facility]: [facility] 11/05/2019 09:2 4:02 AM EDT [facility]patient [facility]: [facility] 10/23/2019 09:3 2:01 AM EDT [facility]: [facility]09[facility]2019 08[facility]31[facility] CODY ROSS 08/19/2019 07:53:47 P M EDT [facility]: [facility] 08/19/2019 01:29:[address] [facility] Outpatient Attender: CODY Curry [facility] 08/09/2019 12:16:[address] [facility] Outpatient Attender: CODY Curry [facility] 06/11/2019 03:55:[address] [facility] Outpatient Attender: WILFREDO RITTER [facility] 06/05/2019 01:38:[address] [facility] Outpatient Attender: WILFREDO LOVE [facility] 06/05/2019 01:37:[address] [facility] Outpatient Attender: WILFREDO LOVE [facility] 06/04/2019 03:12:[address] [facility] Outpatient Attender: WILFREDO LOVE [facility] 05/20/2019 07:55:[address] [facility] Outpatient Attender: WILFREDO LOVE [facility] 05/20/2019 07:46:[address] [facility] Outpatient Attender: WILFREDO RITTER [...] Health Outpatient Attender: WILFREDO RITTER [facility] 05/13/2019 10:16:01 AM [facility] Outpatient Attender: WILFREDO RITTER [facility] 05/13/2019 10:15:01 AM [facility] Outpatient Attender: WILFREDO RITTER [facility] 05/13/2019 09:49:01 AM [facility] Outpatient Attender: WILFREDO RITTER [facility] 04/09/2019 04:02:00 PM [facility] Outpatient Attender: WILFREDO [facility] 04/04/2019 09:01:04 PM [facility] Outpatient Attender: [facility] 04/04/2019 05:11:00 PM [facility] Outpatient Attender: [facility]O [facility] 04/04/2019 05:10:01 PM [facility] Outpatient Attender: WILFREDO RITTER ALL 04/04/2019 09:33:34 AM [facility] Emergency Attender: OCTAVIO GALEANA MD ER-ER 0 03/17/2019 03:55:00 PM [facility] - 03/17/2019 07:27:00 PM [facility] Patient discharged. Insurance Providers Payer name Policy type / Coverage type Policy ID Covered constitution party ID Covered constitution party's relationship to matos Policy Matos Plan Information [employer] PLAN [facility] [id number] SP [id number] [facility]) O [id number] S [id number] Medicaid S [id number] [facility] Community Plan P [id number] S [id number] [employer] [id number] SP [id number] Medicaid S [id number] S [id number] Managed Care [facility] Community Plan P [id number] S [id number] [facility] JAIDA [id number] S [id number] [facility] JAIDA UNAVAILABLE S UNAVAILABLE [employer] [id number] SP [id number] [employer] [facility] [id number] SP [id number] SELF PAY ONLY [id number] SP [id number] MEDICAID [id number] SP [id number] MEDICAID [id number] SP [id number] SELF PAY UNAVAILABLE SP UNAVAILA BLE [facility] COMMUNITY PLAN [facility] [id number] SP [id number] MEDICAID [id number] SP [id number] Problems, Conditions, and Diagnoses Code Display Name Description Problem Type Effective Dates Data Source(s) 521.00 Dental caries Dental caries 05/13/2019 11:03:38 AM [facility] M79.672 Pain in left foot PAIN IN LEFT FOOT Diagnosis 03/17 03:55:00 PM [facility] M76.62 Achilles tendinitis, left leg ACHILLES TENDINITIS, LEF T LEG Diagnosis 03/17/2019 03:55:00 PM EST [facility] Results ID Date Data Source [id number] 11/11/2019 02:29:14 PM EDT [facility] Current Problems: Dental caries (ICD-521 .00) (QQW33-P95.9)[place] teeth impaction (ICD-520.6) (QPC37-C55.1)Problem list reviewed during this update.Medication list reviewed [...] rce(s) Supporting Document(s) ID Date Data Source [id number] 10/23/2019 08:55:40 AM EDT [facility] Current Problems: Dental caries (ICD-521 .00) (LVT78-U03.9)[place] teeth impaction (ICD-520.6) (EPZ18-U02.1)Problem list reviewed during this update.Medication list reviewed [...] rce(s) Supporting Document(s) ID Date Data Source [id number] 09/26/2019 11:00:00 AM EDT [facility] Name Value Range Interpretation Code Description Data Shae rce(s) Supporting Document(s) SARS coronavirus 2 RNA [facility] This lab was ordered by [facility] and reported by [facility]. ID Date Data Source [id number] 06/05/2019 07:59:46 AM EDT [facility] Current Problems: Dental caries (ICD-521 .00) (CMK32-P95.9)[place] teeth impaction (ICD-520.6) (YPL84-R67.1)Problem list reviewed during this update.Medication list reviewed [...] rce(s) Supporting Document(s) ID Date Data Source [id number] 05/14/2019 10:23:10 AM [facility] Current Problems: Dental caries (ICD-521 .00) (MMI44-J60.9)[place] teeth impaction (ICD-520.6) (PZS83-H80.1) Dental Chart: Procedures:Type - CDT Code - [...] this time. A: JELENA recommends to have confucianist of #3- MO replaced. Placed Cavit for temporary and advised pt. to be careful when eating and no flossing between #3 until permanent confucianist is completed. DX: #3-MO fractured with loss of confucianist. P: confucianist of #3-MOInformed Pt abo ut new pain management policy of the clinic regarding about narcotic,told pt to alternate Ibuprophen 600- 800mg and tylenol 500mg every 4 to 6 hrs for pain when neededAssisted By:AM.NV: confucianist.Shon Robbins DDS by david (05/14/2019 10:53 AM): [...] rce(s) Supporting Document(s) ID Date Data Source [id number] 05/13/2019 09:48:10 AM [facility] Current Problems: Dental caries (ICD-521 .00) (BWT71-Q32.9)[place] teeth impaction (ICD-520.6) (DZE72-W30.1)Problem list reviewed during this update.Medication list reviewed [...] DDS) Chart Notes:david (May 13 2019 11:03AM): [facility] (-)Per Pt. CC: none. HurriCaine (Watermelon) Topical, [...] Assessment & Plan Problems:Added: Dental caries (ICD-521.00) (XNG51-H71.9)Allergies:No Known Allergies (updated 05/13/2019) Name Value Range Interpretation Code Description Data Shae rce(s) Supporting Document(s) ID Date Data Source [id number] 04/03/2019 02:35:09 PM [facility] Vital SignsBlood Pressure: 123/71 Patient History Family History:No known FHSocial/Personal History: Smoking Status: never smokerCurrent Problems: [place] teeth impaction (ICD-520.6) (MET05-A33.1) Dental Chart: Procedures:Type - CDT Code - Description B - (D0150) Comprehensive oral evaluation - new or established patient (Performed by Shon Robbins DDS) B - (D1110) Prophylaxis, adult (Performed by Tianna Yoon) B - (D0274) Bitewings, 4 radiographic [...] O Chart Notes:david (Apr 04 2019 7:33AM): [facility](-). CC" I have pain on my lower left wi tooth". Reviewed Xrays. Exam: caries detected. OCS: WNL, IO/ EO completed, No significant hard findings upon clinical exam Pt was cooperative.OHI givenReferral: OS or wisdom teethNV:Tianna Subramanian by david (04/04/2019 7:33 AM): ; cresencio (Apr 03 2019 3:54PM): [facility](-)cc- My lower left side hurtsPatient was referred [...] rce(s) Supporting Document(s) ID Date Data Source [id number] 03/18/2019 09:15:00 AM EST [facility] Exam Number: [id number] OF [facility] N: 03/17/2019 17:49 ESTCLINICAL INDICATION: PainTECHNIQUE: 2 [...] rce(s) Supporting Document(s) ID Date Data Source [id number] 03/17/2019 07:52:00 PM EST [facility] Exam Number: [id number] OF [facility] N: 03/17/2019 17:49 ESTHISTORY: PainTECHNIQUE: 4 views [...] rce(s) Supporting Document(s) ID Date Data Source [id number] 03/17/2019 07:27:00 PM EST [facility] Physician DocumentationClaxton-Marta Diggs edical CenterName: Adrianna NoriegaorthAge: 23 yrsSex: MaleDOB: 1995MRN: [id number] Date: 03/17/2019Time: 15:55Account#: [id number] W4Dctvrur MD: Out of town provider, -ED Physician Lissett ArthurDisposition Summary:03/17/19 19:20Discharge OrderedLocation: Home Self Care jf7Zctcvvb: new gk6Mhpmxbbl: are unchanged ua3Srfirienn: Stable dk2Yjypywgej- Achilles tendinitis, left leg os5Sivihasl: mb5- With: Mohsen Lozano MD- When: 1 - 2 days- Reason: Recheck today's complaints, Continuance of careDischarge Instructions:- Discharge Summary Sheet mb5- TENDONITIS sf3Wqze s:- Medication Reconciliation mb5- Medication Reconciliation Form - 2nd Copy ke8Verqgjiueqe:03/619:09 Attestation: I was available for consultation throughout this afpatient's ED visit.HPI:17:50 This 23 yrs old White Male presents to ER via Private Vehicle with rx3ocvxtuoxvq of Foot Pain.17:50 The patient presents with pain, that is chronic, states he thinks he jb2vjsphyk Achilles heel a couple of months ago [...] testing normal through active and passive rangeof ctxeby62:56 Neuro: Exam negative for acute changes.Vital Signs:16:37 BP 99 / 60; Pulse 59; Resp 16; Temp 98.5; Pulse Ox 98% on R/A; Weight blk84 kg; Pain 6/10;19:27 zs19:27 Defferred per provider zsMDM:17:46 Patient medically screened. mb517:50 Data reviewed: vital signs, nurses notes. 5003/1717:49 Order name: Foot (Left) Limited - 2 Views mb5003/1717:49 Order name: Ankle Complete Left - 4 View mb5003/1719:21 Order name: Other: DILEEP wrap; Complete Time: 19:26 nq6Rxcqshvgs Medications:No medications were administeredSignatures:Dispatcher [employer] Rosa M Case RN RN blkFedorowicz, Arthur, MD MD afBridge, Michelle, ZONING ASSISTANT-C ZONING ASSISTANT-Cmb5 Name Value Range Interpretation Code Description Data Shae rce(s) Supporting Document(s) ID Date Data Source [id number] 03/17/2019 07:27:00 PM EST [facility] terName: Adrianna NoriegaorthAge: 23 yrsSex: MaleDOB: 1995MRN: [id number] Date: 03/17/2019Time: 15:55Account#: [id number] V7Shvogrw MD: Out of town provider, -Diagnosis: Achilles [...] procedures completed. blk17:45 Sandra Alford FNP-C is [facility]. mb517:45 Octavio Galeana MD is Attending Physician. mb519:20 Mohsen Lozano MD is Referral Physician. mb519:27 Dileep wrap to left ankle. zsAdministered Medications:No medications were administeredOutcome:19:20 Discharge ordered by . mb519:27 Disposition: Discharged to home ambulatory. zs19:27 Condition: stable, Condition: eejnjxfw82:27 Discharge instructions given to patient, Instructed on dischargeinstructions, follow up and referral plans. Demonstratedunderstanding of instructions.19:27 Discharge Assessment: Patient verbalized understanding of dispositioninstructions. Patient has no functional deficits.19:27 Patient left the ED. zsSignatures:Rosa M Castillo RN RN blkShantie, Zachary, RN RN zsBridge, Michelle, FNP-C FNP-Oub5NchekvwcAva Manzano xd3Isfbzsznfvr: (The following items were deleted from the chart)16:39 16:34 Presenting complaint: Patient states: he injured the right blkachilles area while playing basketball 2 weeks ago and the paincontinues blk Name Value Range Interpretation Code Description Data Shae rce(s) Supporting Document(s) Procedure
[2020-05-01 22:37] LABS: CHLAMYDIA DNA AMPLIFICATION NEGATIVE (NEGATIVE); GC DNA AMPLIFICATION NEGATIVE (NEGATIVE)
== END 2020-05-01 21:50 | disposition home or self-care (01) ==
LOC: M ED 20:36
DX: S60.221A Contusion of right hand, initial encounter (principal); W22.8XXA Striking against or struck by other objects, initial encounter; Y92.008 Other place in unspecified non-institutional (private) residence as the place of occurrence of the external cause; Z20.2 Contact with and (suspected) exposure to infections with a predominantly sexual mode of transmission
CPT/HCPCS: 73130; 87661; 96372; 99283; J0696

== ENCOUNTER 2020-09-08 15:29 | Emergency (ER) | payer BC, OTHER ==
[~2020-09-08] VITALS: Ht 175.3 cm; Wt 91.8 kg
[~2020-09-08 15:29] MED LIST changes: +DOXY1CAP62 PO
[2020-09-08] MEDS ORDERED: methocarbamoL 500 MG TAB PO ONE (18:35)
[2020-09-08] MEDS ORDERED: KETOROLAC TROMETHAMINE 10 MG TAB PO ONE (18:35)
[2020-09-08] MEDS ORDERED: METH-1164 PO (18:41)
[2020-09-08] MEDS ORDERED: KETO10TAB PO (18:42)
[2020-09-08 19:21] VITALS: BP 126/76
== END 2020-09-08 19:24 | disposition home or self-care (01) ==
LOC: M ED 15:29
DX: M54.16 Radiculopathy, lumbar region (principal); S39.012A Strain of muscle, fascia and tendon of lower back, initial encounter; X58.XXXA Exposure to other specified factors, initial encounter; Y92.89 Other specified places as the place of occurrence of the external cause

== ENCOUNTER 2020-10-05 20:06 | Emergency (ER) | payer BC, OTHER ==
[~2020-10-05] VITALS: Ht 175.3 cm; Wt 95.0 kg
[~2020-10-05 20:06] MED LIST changes: +DOXY-443 PO; -DOXY1CAP62 PO; +METH-1164 PO
[2020-10-05 22:30] LABS: GC DNA AMPLIFICATION NEGATIVE (NEGATIVE)
[2020-10-05] MEDS ORDERED: DOXYCYCLINE HYCLATE 100MG TABLET PO ONE (22:55)
[2020-10-05 23:01] VITALS: BP 121/69
[2020-10-05] MEDS ORDERED: DOXY-443 PO (23:04)
== END 2020-10-05 23:16 | disposition home or self-care (01) ==
LOC: M ED 20:06
DX: A74.9 Chlamydial infection, unspecified (principal)

== ENCOUNTER 2021-10-30 15:49 | Emergency (ER) | payer BC, OTHER ==
[~2021-10-30] VITALS: Ht 175.3 cm; Wt 94.3 kg
[2021-10-30 15:49] VITALS: BP 117/74
== END 2021-10-30 17:26 | disposition home or self-care (01) ==
LOC: M ED 15:49
DX: S60.221A Contusion of right hand, initial encounter (principal); W22.8XXA Striking against or struck by other objects, initial encounter; Y92.008 Other place in unspecified non-institutional (private) residence as the place of occurrence of the external cause

== ENCOUNTER 2021-12-17 06:00 | Emergency (ER) | payer BC, OTHER ==
[~2021-12-17] VITALS: Ht 175.3 cm; Wt 93.2 kg
[2021-12-17 06:26] VITALS: BP 127/83
[2021-12-17] MEDS ORDERED: BACI28.43 TOP (06:55)
== END 2021-12-17 07:09 | disposition home or self-care (01) ==
LOC: M ED 06:00
DX: S61.011A Laceration without foreign body of right thumb without damage to nail, initial encounter (principal); X99.1XXA Assault by knife, initial encounter; Y92.009 Unspecified place in unspecified non-institutional (private) residence as the place of occurrence of the external cause; Y07.04 Female partner, perpetrator of maltreatment and neglect

== ENCOUNTER 2022-03-01 00:34 | Emergency (ER) | payer OTHER ==
[~2022-03-01] VITALS: Ht 175.3 cm; Wt 93.0 kg
[~2022-03-01 00:34] MED LIST changes: +BACI28.43 TOP
[2022-03-01 00:35] VITALS: BP 124/58
== END 2022-03-01 02:44 | disposition left against medical advice (07) ==
LOC: M ED 00:34
DX: Z53.21 Procedure and treatment not carried out due to patient leaving prior to being seen by health care provider (principal)

== ENCOUNTER 2024-06-24 10:27 | Emergency (ER) | payer OTHER, SELFPAY ==
[~2024-06-24] VITALS: Ht 170.2 cm; Wt 97.1 kg
[~2024-06-24 10:27] MED LIST changes: +BACI28.417 TOP; -BACI28.43 TOP; -CYCL5TAB PO; +CYCL5TAB4 PO; +DOXY-441 PO; -DOXY-443 PO
[2024-06-24 10:29] VITALS: TEMP 97.4
[2024-06-24 11:24] LABS: BASO % 0.5 % (0.0-1.0); EOS # 0.1 10^3/uL (0.0-0.5); EOS % 3.1 % (0.0-3.0); HEMATOCRIT 45.2 % (42.0-52.0); HEMOGLOBIN 14.8 g/dl (13.5-17.5); LYMPH # 1.2 10^3/uL (1.5-5.0); LYMPH % 31.1 % (24.0-44.0); MEAN CORPUSCULAR HEMOGLOBIN 27.1 pg (27.0-33.0); MEAN CORPUSCULAR HGB CONC 32.7 g/dl (32.0-36.5); MEAN CORPUSCULAR VOLUME 82.6 fl (80.0-96.0); MONO # 0.4 10^3/uL (0.0-0.8); MONO % 11.1 % (2.0-8.0); NEUTROPHILS # 2.1 10^3/uL (1.5-8.5); NEUTROPHILS % 53.9 % (36.0-66.0); PLATELET COUNT, AUTOMATED 150 10^3/uL (150-450); RED BLOOD COUNT 5.47 10^6/uL (4.30-6.10); WHITE BLOOD COUNT 3.9 10^3/uL (4.0-10.0)
[2024-06-24 11:55] LABS: BLOOD UREA NITROGEN 11 MG/DL (9-23); CALCIUM LEVEL 9.2 MG/DL (8.5-10.1); CARBON DIOXIDE LEVEL 28 MMOL/L (20-31); CHLORIDE LEVEL 101 MMOL/L (98-107); CK-MB VALUE MASS < 1.0 NG/ML (<3.6); CPK CREATINE PHOSPHOKINASE 242 U/L (46-171); CREATININE FOR GFR 1.07 MG/DL (0.70-1.30); GLOMERULAR FILTRATION RATE > 90.0 (>60); GLUCOSE, FASTING 91 MG/DL (60-100); MB/CK RELATIVE INDEX 0.41 (< OR =4); POTASSIUM SERUM 4.2 MMOL/L (3.5-5.1); SODIUM LEVEL 138 MMOL/L (136-145)
[2024-06-24 13:13] LABS: CPK CREATINE PHOSPHOKINASE 224 U/L (46-171); MB/CK RELATIVE INDEX 0.44 (< OR =4)
[2024-06-24 13:45] VITALS: BP 119/76; O2SAT 97
== END 2024-06-24 14:04 | disposition home or self-care (01) ==
LOC: M ED 10:27
DX: R07.89 Other chest pain (principal); F10.10 Alcohol abuse, uncomplicated